=== PATIENT | male | born 1965 | race Caucasian/White ===

== ENCOUNTER 2021-02-25 01:40 | Emergency (ER) | payer SELFPAY ==
[2021-02-25 01:41] VITALS: BP 170/105; PULSE 55; RESP 18; TEMP 36.2; O2SAT 97; BMI 33.9
--- NOTE | 2021-02-25 02:17 | CT_ITS ---
HISTORY: Trauma TECHNIQUE: Helically acquired images were obtained of the facial bones without intravenous contrast. Coronal and sagittal reformats obtained. A radiation dose optimization technique was used for this scan. COMPARISON: None FINDINGS: # of images incl. paperwork: 458 SOFT TISSUES: Left greater than right paranasal edema and trace subcutaneous emphysema. No radiodense soft tissue foreign body. Carotid and vertebral atherosclerosis. FACIAL BONES: Nondisplaced nasal tip fracture, coronal image 22 and sagittal image 81. No other fracture. No aggressive osseous leasion. Right C2-C3 posterior element osseous fusion. SINUSES: Minimal right maxillary sinus and ethmoid sinus mucoperiosteal thickening. SKULL BASE: Unremarkable. CT/Sinus/Facial Bone IMPRESSION: Nondisplaced nasal tip fracture. Minimal scattered sinus disease. Individualized dose optimization techniques were used for this CT. at 0308 Reported and signed by: Balta Briones MD Electronically Signed: Balta Briones MD at 3:06 EDT Tel , Service support ,
--- NOTE | 2021-02-25 02:19 | ED.VIS.FALL ---
HPI HPI - Fall History of Present Illness Chief Complaint: Fall Informant: patient Occured/Mechanism Occurred: Today Mechanism/Context: Yes slip Narrative: Patient slipped and fell Fall from Height (ft): Standing position Usually ambulates: Without assistance Pain/Injury Pain Location: face Quality of Pain: Aching and Burning Worsened by: Nothing Relieved by: Nothing Associated Symptoms Associated Symptoms: Negative for Parasthesias, Weakness, Loss of function, Inability to ambulate and Loss of consciousness Narrative Narrative: Patient presents after a fall that occurred today. Patient states he slipped and fell. Patient states he hit his nose on the ground. Patient denies any loss of consciousness. Patient describes his pain as aching and burning. Patient states nothing makes it better nothing makes it worse. Patient denies any paresthesias or weakness. Patient denies any visual changes. Patient denies any nausea or vomiting. Patient states his last tetanus was more than 10 years ago. Tetanus Immunization: >10 years PFSH PFS Medical History no medical history no medical history Home Medications cephalexin 500 mg PO Q6 #40 capsule 02/25/21 [Rx Last Taken Unknown] Allergy/AdvReac Type Severity Reaction Status Date / Time No Known Allergies Allergy Verified 02/25/21 01:43 Surgical History no surgical history no surgical history Social History Smoking Status: Former smoker ROS ROS ED Constitutional Constitutional ED: Denies chills or fever(s) Eyes Eyes: Denies blurry vision or change in vision ENT ENT ED: Denies rhinorrhea or sore throat Cardiovascular Cardiovascular: Denies chest pain or palpitations Respiratory/Chest Respiratory/Chest: Denies cough or dyspnea Gastrointestinal Gastrointestinal: Denies nausea or vomiting Genitourinary Genitourinary ED: Denies dysuria or hematuria Musculoskeletal Musculoskeletal: Denies back pain or neck pain Integumentary Denies abscess or rash Neurologic Neurologic: Reports headache(s); Denies weakness Allergic/Immunologic Allergic/Immunologic ED: Denies mouth swelling or urticaria EXAM Physical Exam Const Vital Signs: 02/25/21 01:41 02/25/21 01:43 Temperature 97.2 F L Temperature Source Temporal Pulse Rate 55 L Respiratory Rate 18 Respiratory Effort Normal Respiratory Pattern Normal Blood Pressure 170/105 H Blood Pressure Mean 126 Pulse Ox 97 Oxygen Delivery Method Room Air Positive well nourished and well developed General Appearance ED: well developed HEENT Reports moist mucous membranes HEENT Narrative: There is tenderness over the bridge of the nose and forehead in the midline. There is no bony crepitance or step-off. There is some mild edema and ecchymosis noted. There is a 2 cm V-shaped laceration between the eyebrows. There is minimal gapping of the wound margins. There are no foreign bodies. tenderness Eyes PERRL and EOMs intact bilaterally Neck supple and no JVD GI normal to inspection, nondistended, normoactive bowel sounds Extremity normal to inspection Neuro oriented x3, CN's II-XII intact bilaterally, no focal motor deficits and no sensory deficits noted Sensorium / Orientation: alert Motor Exam: strength 5/5 throughout Psych mental status grossly normal Skin no rashes or lesions noted MDM MDM MDM Narrative Medical decision making narrative: CT scan of the facial bones was obtained. There is a nondisplaced fracture of the tip of the nasal bone. This was interpreted by the radiologist and reviewed by myself. The wound was cleaned with chlorhexidine. The laceration was closed with Dermabond skin adhesive. 3 layers were used. Patient tolerated the procedure well. Patient was given a dose of Keflex here. Patient was given a prescription for Keflex. Patient was instructed to follow-up with his primary care physician in 5 to 7 days. Patient understood and was agreeable with the plan. All questions were answered. Radiography Diagnostic Testing: Clinical Impression(s) from Imaging Studies Facial/Sinus 02/25/21 02:17 IMPRESSION: Nondisplaced nasal tip fracture. Minimal scattered sinus disease. Individualized dose optimization techniques were used for this CT. at 0308 Reported and signed by: Balta Briones MD Electronically Signed: Balta Briones MD at 3:06 EDT Tel , Service support , Discharge Plan Triage Chief Complaint: Fall ED Provider: Sylvester Patricia Dx/Rx/DC Orders Clinical Impression: Laceration of face, Fracture of nasal bone Instructions: ED Facial Fracture, ED Laceration, Face: Skin Glue Prescriptions: New cephalexin [cephalexin] 500 MG capsule 500 mg PO Q6 Qty: 40 RF: 0 Primary Care Provider: Care Physician,No Primary Referrals: Care Physician,No Primary [Primary Care Provider] - 5-7 Days Disposition Disposition: Home, Self Care
[2021-02-25] MEDS: Diphth,Pertuss(Acell),Tet Vac 0.5 ML Vial IM (03:05)
[2021-02-25 04:52] VITALS: RESP 16
[2021-02-25] MEDS: Cephalexin 500 MG Capsule PO (05:06)
[2021-02-25 05:07] VITALS: PULSE 62; RESP 16
== END 2021-02-25 05:07 | disposition home or self-care (01) ==
PROVIDERS: Emergency Provider Emergency Medicine
DX: S01.81XA Laceration without foreign body of other part of head, initial encounter (principal); S02.2XXA Fracture of nasal bones, initial encounter for closed fracture; Z87.891 Personal history of nicotine dependence; W01.0XXA Fall on same level from slipping, tripping and stumbling without subsequent striking against object, initial encounter
CPT/HCPCS: 70486; 90715; 96372; 99282